=== PATIENT | female | born 2000 | race Caucasian/White ===

== ENCOUNTER 2024-10-25 05:37 | Emergency (ER) | payer MEDICAID ==
[~2024-10-25] VITALS: Ht 160 cm; Wt 69.6 kg
[2024-10-25 05:45] VITALS: PULSE 109; O2SAT 99
[2024-10-25 06:02] VITALS: BP 105/66; RESP 16; TEMP 36.8; O2SAT 99
== END 2024-10-25 08:14 | disposition left against medical advice (07) ==
LOC: ER 05:37
DX: M25.521 Pain in right elbow (principal); Z53.21 Procedure and treatment not carried out due to patient leaving prior to being seen by health care provider; Z98.890 Other specified postprocedural states